=== PATIENT | male | born 1995 | race Two or more races ===

== ENCOUNTER 2016-07-08 11:26 | Observation (INO) | payer MEDICAID ==
[2016-07-08 12:11] LABS: BASO # 0.1 K/uL (0.0-0.2); BASO % 0.4 % (0.0-2.0); EOS # 0.3 K/uL (0.0-0.7); EOS % 1.3 % (0.0-4.0); HEMATOCRIT 43.6 % (35.0-51.0); LYMPH # 2.2 K/uL (1.0-4.3); LYMPH % 10.8 % (20.0-40.0); MEAN CORPUSCULAR HEMOGLOBIN 30.4 pg (27.0-31.0); MEAN CORPUSCULAR HGB CONC 33.4 g/dL (33.0-37.0); MEAN PLATELET VOLUME 10.3 fl (7.2-11.7); MONO # 1.1 K/uL (0.0-0.8); MONO % 5.5 % (0.0-10.0); NEUT # 16.9 K/uL (1.8-7.0); PLATELET COUNT 173 K/uL (130-400); RED CELL DISTRIBUTION WIDTH 13.3 % (11.5-14.5); WHITE BLOOD COUNT 20.6 K/uL (4.8-10.8)
[2016-07-08 12:20] LABS: ALB/GLOB RATIO 1.4 (1.0-2.1); ALCOHOL SERUM 53 mg/dl (0-10); ALKALINE PHOSPHATASE 98 U/L (38-126); ALT/SGPT 31 U/L (21-72); AST/SGOT 33 U/L (17-59); BILIRUBIN,TOTAL 0.3 mg/dl (0.2-1.3); BLOOD UREA NITROGEN 13 mg/dl (9-20); CALCIUM 9.3 mg/dL (8.4-10.2); CARBON DIOXIDE 23 mmol/L (22-30); CHLORIDE 101 mmol/L (98-107); GFR AFRICAN-AMERICAN > 60; GLUCOSE,RANDOM 70 mg/dL (75-110); POTASSIUM 3.9 MMOL/L (3.6-5.0); SODIUM 142 mmol/l (132-148); TOTAL PROTEIN 7.7 G/DL (6.3-8.2)
--- NOTE | 2016-07-08 13:00 | CT ---
PROCEDURE: CT HEAD WITHOUT CONTRAST. HISTORY: AMS COMPARISON: None available. TECHNIQUE: Axial computed tomography images were obtained through the head/brain without intravenous contrast. Radiation dose: Total exam DLP = 892.56 mGy-cm. This CT exam was performed using one or more of the following dose reduction techniques: Automated exposure control, adjustment of the mA and/or kV according to patient size, and/or use of iterative reconstruction technique. FINDINGS: HEMORRHAGE: No intracranial hemorrhage. BRAIN: No mass effect or edema. Superior frontal left parasagittal venous angioma. No atrophy or chronic microvascular ischemic changes.Please note that MRI with diffusion imaging is more sensitive in the detection of acute ischemic event. VENTRICLES: No hydrocephalus. CALVARIUM: Unremarkable. PARANASAL SINUSES: Unremarkable as visualized. No significant inflammatory changes. MASTOID AIR CELLS: Unremarkable as visualized. No inflammatory changes. OTHER FINDINGS: Mild frontal soft tissue swelling. Subgaleal calcification; correlate for prior trauma. IMPRESSION: Superior frontal left parasagittal venous angioma. Mild frontal soft tissue swelling. Subgaleal calcification; correlate for prior trauma.
[2016-07-08 13:06] LABS: EOSINOPHIL 1 % (0-7); NEUTROPHIL 84 % (42-75); TOTAL CELLS COUNTED 100
[2016-07-08 13:08] LABS: LARGE PLATELETS PRESENT
[2016-07-08 13:08] LABS: VENOUS BLOOD GAS BASE EXCESS 0.3 mmol/L (0.0-2.0); VENOUS BLOOD GAS PCO2 48 mmHg (40-60); VENOUS BLOOD PH 7.35 (7.32-7.43)
[2016-07-08] MEDS ORDERED: Sodium Chloride 0.9% 2,000 ML IV STA (13:16)
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
--- NOTE | 2016-07-08 13:33 | RAD ---
HISTORY: elevated wbc, ams COMPARISON: No prior. FINDINGS: LUNGS: No active pulmonary disease. PLEURA: No significant pleural effusion identified, no pneumothorax apparent. CARDIOVASCULAR: Normal. OSSEOUS STRUCTURES: No significant abnormalities. VISUALIZED UPPER ABDOMEN: Normal. OTHER FINDINGS: None. IMPRESSION: No active disease.
[2016-07-08 13:57] LABS: RBC URINE 1 /hpf (0-3); URINE BILIRUBIN NEGATIVE (NEGATIVE); URINE BLOOD SMALL (NEGATIVE); URINE COLOR YELLOW (YELLOW); URINE GLUCOSE (UA) NEG (Normal); URINE KETONE NEGATIVE (NEGATIVE); URINE LEUKOCYTE ESTERASE NEG Leu/uL (Negative); URINE PROTEIN NEGATIVE (NEGATIVE); URINE UROBILINOGEN 0.2-1.0 mg/dL (0.2-1.0); WBC URINE 1 /hpf (0-5)
[2016-07-08] MEDS ORDERED: Dextrose 50% SYRINGE Inj (50 ml) IVP STA (14:00)
[2016-07-08] MEDS ORDERED: Dextrose 50% SYRINGE Inj (50 ml) ONE (14:01)
[2016-07-08] MEDS ORDERED: Sodium Chloride 0.9% 1,000 ML IV STA (18:37)
--- NOTE | 2016-07-08 23:17 | ED PDOC ---
- Laboratory Results Result Diagrams: 07/09/16 10:27 07/08/16 12:06 - ECG O2 Sat by Pulse Oximetry: 100 (RA) - Progress ED Course And Treament: 15:30 Pt became agitated, talking to self, aggressive outbursts to staff and cursing and trying to leave. Medicated for agitation/psychosis and restrained for safety. 16:00 Pt sleeping comfortably. 19:00 Pt answering some yes/no questions, but still refusing to talk/converse outright. Responds that yes he is homeless. Denies being hungry. Says yes when asked if he wants to go to sleep. Pt medically stable for psychiatric evaluation and admission if necessary. Pending crisis eval. 22:00 Pt sleeping comfortably. [address] Kaba pending crisis eval. Condition: Improving,but remains with symptoms Disposition - Clinical Impression Clinical Impression: Substance abuse - POA Present On Arrival: None - Disposition Disposition: Transfer of Care Disposition Time: 14:10 Condition: STABLE
--- NOTE | 2016-07-09 01:02 | ED PDOC ---
- Laboratory Results Result Diagrams: 07/09/16 10:27 07/08/16 12:06 - ECG O2 Sat by Pulse Oximetry: 100 (RA) Pulse Ox Interpretation: Normal Medical Decision Making Medical Decision Makin:00 Patient is medically cleared, and has been transferred over to Dr. Kaba pending crisis eval. Scribe Attestation: Documented by Rebekah Scott, acting as a scribe for Bethany Kaba MD. Provider Scribe Attestation: All medical record entries made by the Scribe were at my direction and personally dictated by me. I have reviewed the chart and agree that the record accurately reflects my personal performance of the history, physical exam, medical decision making, and the department course for this patient. I have also personally directed, reviewed, and agree with the discharge instructions and disposition. Disposition - Clinical Impression Clinical Impression: Substance abuse - POA Present On Arrival: None - Disposition Disposition: Transfer of Care Disposition Time: 07:00 Condition: STABLE Patient Signed Over To: Peep Elias Handoff Comments: Transfer pending [facility] screening
--- NOTE | 2016-07-09 07:29 | ED PDOC ---
- Laboratory Results Result Diagrams: 07/08/16 12:06 07/08/16 12:06 - ECG O2 Sat by Pulse Oximetry: 100 (RA) Pulse Ox Interpretation: Normal Medical Decision Making Medical Decision Making: Receivign Sign Out: Patient signed out to me by Dr. Kaba with [place] [facility]. Scribe Attestation: Documented by Taty Farley acting as a scribe for Pepe Elias MD. Provider Attestation: All medical record entries made by the Scribe were at my direction and personally dictated by me. I have reviewed the chart and agree that the record accurately reflects my personal performance of the history, physical exam, medical decision making, and the department course for this patient. I have also personally directed, reviewed, and agree with the discharge instructions and disposition. Disposition - Clinical Impression Clinical Impression: Substance abuse - Disposition Condition: STABLE
[2016-07-09 10:36] LABS: HEMATOCRIT 39.4 % (35.0-51.0); MEAN CELL VOLUME 90.5 fl (80.0-94.0); MEAN CORPUSCULAR HEMOGLOBIN 30.9 pg (27.0-31.0); MEAN CORPUSCULAR HGB CONC 34.1 g/dL (33.0-37.0); RED CELL DISTRIBUTION WIDTH 13.3 % (11.5-14.5); WHITE BLOOD COUNT 7.7 K/uL (4.8-10.8)
--- NOTE | 2016-07-09 15:52 | ED PDOC ---
- Laboratory Results Result Diagrams: 07/09/16 10:27 07/08/16 12:06 - ECG O2 Sat by Pulse Oximetry: 95 (RA) Medical Decision Making Medical Decision Making: Receiving Sign Out: Pt signed over to me by Dr. Elias [place] [facility] [place]. Scribe Attestation: Documented by Taty Farley acting as a scribe for Radhika Davis MD. Provider Attestation: All medical record entries made by the Scribe were at my direction and personally dictated by me. I have reviewed the chart and agree that the record accurately reflects my personal performance of the history, physical exam, medical decision making, and the department course for this patient. I have also personally directed, reviewed, and agree with the discharge instructions and disposition. Disposition - Clinical Impression Clinical Impression: Substance abuse, Psychosis - POA Present On Arrival: None - Disposition Disposition: Transfer of Care Disposition Time: 00:00 Condition: STABLE ED OBSERVATION Date of observation admission: 07/09/16 - Observation admission statement Patient is being placed in observation because:: pt awaiting [place] [facility] [place] Goals of Observation Goals of observation are:: Stabilization until psychiatric disposition - Progress Note Progress Note: 07/09/16 15:52 Pt currently sleeping in room. 1800 Pt walked to bathroom without difficulty. 1900 Had food tray. Continues to refuse to converse. 2200 Pt ate dinner. Pending reevaluation by [facility] [place]. STable. [address] Kaba. Pending [facility] [place].
--- NOTE | 2016-07-10 01:22 | ED PDOC ---
- Laboratory Results Result Diagrams: 07/09/16 10:27 07/08/16 12:06 - ECG O2 Sat by Pulse Oximetry: 100 (RA) Medical Decision Making Medical Decision Makin: Patient is being transfered to Dr. Kaba pending [facility] [place]. Patient is still medically stable for psychiatric admission. Pt is accepted by [facility]. Scribe Attestation: Documented by Franklin Mayen acting as a scribe for Bethany Kaba MD. Provider Scribe Attestation: All medical record entries made by the~Rodrigowere at my direction and personally dictated by me. I have reviewed the chart and agree that the record accurately reflects my personal performance of the history, physical exam, medical decision making, and the department course for this patient. I have also personally directed, reviewed, and agree with the discharge instructions and disposition. Disposition Doctor Will See Patient In The: Office Counseled Patient/Family Regarding: Studies Performed, Diagnosis, Need For Followup - Clinical Impression Clinical Impression: Substance abuse, Psychosis - POA Present On Arrival: None - Disposition Disposition: Transfer of Care ([facility]) Disposition Time: 07:00 Condition: STABLE
--- NOTE | 2016-07-10 16:44 | ED PDOC ---
- Laboratory Results Result Diagrams: 07/09/16 10:27 07/08/16 12:06 - ECG ECG: Positive for: Interpreted By Me ECG Rhythm: Positive for: Normal QRS, Normal ST Segment, Sinus Rhythm O2 Sat by Pulse Oximetry: 95 (RA) Disposition - Clinical Impression Clinical Impression: Substance abuse, Psychosis - POA Present On Arrival: None - Disposition Disposition: Transfer of Care Disposition Time: 00:00 Condition: STABLE ED OBSERVATION - Progress Note Progress Note: 3p Rec'd Endorsement from Dr Hopkins. Pt psychotic pending bed availability at [facility] [place]. Stable at this time. 1800 Pt asked for something for relief of his anxiety. Benadryl/ativan po ordered. 2100 Pt stable. Psych recommendations appreciated. [address] Zheng. Pending bed availability at [facility].
--- NOTE | 2016-07-10 17:00 | CP.PCM.CON ---
History of Present Illness - History of Present Illness History of Present Illness: This is a 21 year old male with ho psychotic illness brought by EMS because pt was found to be wandering in rain.pt has refused to give any info about his identity and his medical history.pt has been actively hallucinating and also intermitently agitated.pt has refused voluntary admission and refused to be interviewed by staff and waiting for [facility] screening and bed placement. Past Patient History - Past Social History Smoking Status: Unknown If Ever Smoked - CARDIAC Hx Cardiac Disorders: No Hx Hypertension: No - PULMONARY Hx Tuberculosis: No - NEUROLOGICAL HX Cerebrovascular Accident: No Hx Seizures: No - HEMATOLOGICAL/ONCOLOGICAL Hx Cancer: No Hx Human Immunodeficiency Virus (HIV): No - GENITOURINARY/GYNECOLOGICAL Hx Sexually Transmitted Disorders: No - PSYCHIATRIC Hx Substance Use: No (unobtainable) - ANESTHESIA Hx Anesthesia: No (unobtainable) Meds Allergies/Adverse Reactions: Allergies Allergy/AdvReac Type Severity Reaction Status Date / Time No Known Allergies Allergy Verified 07/08/16 14:10 Results - Vital Signs Recent Vital Signs: Last Vital Signs Temp 98.3 F 07/10/16 09:00 Pulse 88 07/10/16 09:00 Resp 18 07/10/16 09:00 BP 122/76 07/10/16 09:00 Pulse Ox 95 07/10/16 16:44 - Labs Result Diagrams: 07/09/16 10:27 07/08/16 12:06
--- NOTE | 2016-07-10 23:54 | ED PDOC ---
- Laboratory Results Result Diagrams: 07/09/16 10:27 07/08/16 12:06 - ECG O2 Sat by Pulse Oximetry: 95 (RA) Medical Decision Making Medical Decision Making: Patient s/o from Dr. Davis at 0000 pending [facility] [place]. Patient s/ o to Dr. Anna at 0700 pending [facility] [place]. Scribe Attestation: Documented by Autumn Cuevas acting as a scribe for Polly Zheng MD. Provider Scribe Attestation: All medical record entries made by the Scribe were at my direction and personally dictated by me. I have reviewed the chart and agree that the record accurately reflects my personal performance of the history, physical exam, medical decision making, and the department course for this patient. I have also personally directed, reviewed, and agree with the discharge instructions and disposition. Disposition - Clinical Impression Clinical Impression: Substance abuse, Psychosis - POA Present On Arrival: None - Disposition Disposition: Transfer of Care Disposition Time: 07:00 Condition: STABLE Patient Signed Over To: Ramon Anna Handoff Comments: pending [facility] [place] ED OBSERVATION Date of observation admission: 07/08/16 Time of observation admission: 14:10 - Observation admission statement Patient is being placed in observation because:: substance abuse - Progress Note Progress Note: 0205: Patient resting comfortably in no distress.
--- NOTE | 2016-07-11 07:17 | ED PDOC ---
- Laboratory Results Result Diagrams: 07/09/16 10:27 07/08/16 12:06 - ECG O2 Sat by Pulse Oximetry: 95 (RA) Pulse Ox Interpretation: Normal Disposition - Clinical Impression Clinical Impression: Substance abuse, Psychosis - POA Present On Arrival: None - Disposition Disposition: Transfer of Care Disposition Time: 17:00 Condition: STABLE Patient Signed Over To: Radhika Davis ED OBSERVATION - Progress Note Progress Note: 07/11/16 07:00 signed over to me by Mary Zheng MD pending [facility] bed availability. 07/11/16 08:34 Vitals are stable. 1000 vitals stable 1200 vitals remain stable 07/11/16 14:03 resting comfortably 07/11/16 16:31 vitals are stable 1700 signed over to Yane Davis MD pending [facility] bed. Additional Comments - Additional Comments Additional Comments: Scribe Attestation: Documented by Shad Gibson acting as a scribe for Ramon Anna MD. Provider Scribe Attestation: All medical record entries made by the Scribe were at my direction and personally dictated by me. I have reviewed the chart and agree that the record accurately reflects my personal performance of the history, physical exam, medical decision making, and the department course for this patient. I have also personally directed, reviewed, and agree with the discharge instructions and disposition.
--- NOTE | 2016-07-11 13:25 | CARD ---
APPROVED REPORT EKG Measurement Heart [id number] <Conclusion> Sinus bradycardia Otherwise normal ECG
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
--- NOTE | 2016-07-11 23:39 | ED PDOC ---
- Laboratory Results Result Diagrams: 07/09/16 10:27 07/08/16 12:06 - ECG O2 Sat by Pulse Oximetry: 98 Disposition - Clinical Impression Clinical Impression: Substance abuse, Psychosis - POA Present On Arrival: None - Disposition Disposition: Transfer of Care Disposition Time: 00:00 Condition: STABLE Patient Signed Over To: Polly Zheng ( ) Handoff Comments: [place] [facility] [place] ED OBSERVATION - Progress Note Progress Note: 5p Rec'd endorsement from Dr Anna. Pt with psychosis awaiting bed availability for [place] [facility] 8p Requesting medication to calm down. Pt has prn meds and can be given. Stable 11p Stable 12a Endorsed to Dr Zheng.
--- NOTE | 2016-07-12 00:46 | ED PDOC ---
- Laboratory Results Result Diagrams: 07/09/16 10:27 07/08/16 12:06 - ECG O2 Sat by Pulse Oximetry: 98 Medical Decision Making Medical Decision Making: Patient s/o from Dr. Davis at 0000 pending [facility] bed availability. Patient sleeping comfortably in no distress. Patient s/o to Dr. Kaba at 0700 pending [facility] bed availability. Scribe Attestation: Documented by Autumn Cuevas acting as a scribe for Polly Zheng MD. Provider Scribe Attestation: All medical record entries made by the Scribe were at my direction and personally dictated by me. I have reviewed the chart and agree that the record accurately reflects my personal performance of the history, physical exam, medical decision making, and the department course for this patient. I have also personally directed, reviewed, and agree with the discharge instructions and disposition. Disposition - Clinical Impression Clinical Impression: Substance abuse, Psychosis - POA Present On Arrival: None - Disposition Disposition: Transfer of Care Disposition Time: 07:00 Condition: STABLE Patient Signed Over To: Bethany Kaba Handoff Comments: pending [facility] bed availability
--- NOTE | 2016-07-12 07:08 | ED PDOC ---
- Laboratory Results Result Diagrams: 07/09/16 10:27 07/08/16 12:06 - ECG O2 Sat by Pulse Oximetry: 98 Medical Decision Making Medical Decision Making: Time: 0700 Patient signed out pending [facility] [place] [place] bed [place] Scribe Attestation: Documented by Gege Lambert acting as a scribe for Bethany Kaba MD MD Scribe Attestation: All medical record entries made by the Scribe were at my direction and personally dictated by me. I have reviewed the chart and agree that the record accurately reflects my personal performance of the history, physical exam, medical decision making, and the department course for this patient. I have also personally directed, reviewed, and agree with the discharge instructions and disposition. Disposition Counseled Patient/Family Regarding: Studies Performed, Diagnosis - Clinical Impression Clinical Impression: Substance abuse, Psychosis - POA Present On Arrival: None - Disposition Disposition: Other Institution ([facility] [place] [place]) Disposition Time: 16:37 Condition: STABLE
[2016-07-12 12:35] VITALS: RESP 19
--- NOTE | 2016-07-12 13:20 | CP.PCM.CON ---
History of Present Illness - History of Present Illness History of Present Illness: Psychiatry consult follow-up CC: "I was just drunk" HPI: 21 yo male brought to er by police after found wandering. pt positive for etoh and mj. Patient continues to disorganized. He started talking about how he raps into to help his breathing and stress, stated in a bizarre non-linear way. He does not believe he has any acute psychiatric issues, but seems psychotic and internally preoccupied. He has been noticed to be talking to himself by various staff members and seems to have thought blocking at times. He denies overt psychotic symptoms when asked directly. He has been accepted at the [facility] for involuntary assessment and is awaiting bed there. Past psych: unknown Medical: unknown Substances alcohol was 53, pos mj. Social: unknown Mse: alert, oriented to self, circumstantial. constricted mood. poor eye contact. denies si/hi. denies a/v hallucinations. paranoid, denies needing treatment or having any psychiatric issues and minimizing reason for admission. poor impulse control. poor i/j. Assessment: Patient continues to need acute psychiatric admission for treatment and stabilization. Psychotic disorder unspecified cannabis use alcohol use Recommendation: continue prn meds for agitation pt awaiting transfer to the [facility] for further assessment pt is refusing to consider voluntary admission Past Patient History - Past Social History Smoking Status: Unknown If Ever Smoked - CARDIAC Hx Cardiac Disorders: No Hx Hypertension: No - PULMONARY Hx Tuberculosis: No - NEUROLOGICAL HX Cerebrovascular Accident: No Hx Seizures: No - HEMATOLOGICAL/ONCOLOGICAL Hx Cancer: No Hx Human Immunodeficiency Virus (HIV): No - GENITOURINARY/GYNECOLOGICAL Hx Sexually Transmitted Disorders: No - PSYCHIATRIC Hx Substance Use: No (unobtainable) - ANESTHESIA Hx Anesthesia: No (unobtainable) Meds Allergies/Adverse Reactions: Allergies Allergy/AdvReac Type Severity Reaction Status Date / Time No Known Allergies Allergy Verified 07/08/16 14:10 - Medications Medications: Current Medications Haloperidol (Haldol) 5 mg PO TID PRN PRN Reason: Agitation Last Admin: 07/12/16 10:16 Dose: 5 mg Lorazepam (Ativan) 1 mg PO TID PRN PRN Reason: Agitation Last Admin: 07/12/16 10:15 Dose: 1 mg Results - Vital Signs Recent Vital Signs: Last Vital Signs Temp 98.2 F 07/12/16 08:00 Pulse 78 07/12/16 08:00 Resp 19 07/12/16 08:00 BP 127/67 07/12/16 08:00 Pulse Ox 99 07/12/16 08:00 - Labs Result Diagrams: 07/09/16 10:27 07/08/16 12:06
[2016-07-12 16:49] VITALS: BP 126/76; PULSE 94; TEMP 97; O2SAT 100
== END 2016-07-12 16:20 ==
LOC: H.ER 11:26 → H.EROBSV 14:10 → EDBD 14:10
PROVIDERS: ADMIT Emergency Medicine; ATTEND Emergency Medicine
DX: F29 Unspecified psychosis not due to a substance or known physiological condition (principal); Z91.83 Wandering in diseases classified elsewhere; F12.90 Cannabis use, unspecified, uncomplicated; Z72.89 Other problems related to lifestyle; Y90.2 Blood alcohol level of 40-59 mg/100 ml
CPT/HCPCS: 36415; 70450; 71010; 80053; 81003; 82803; 82948; 83605; 85025; 85027; 87040; 87086; 93005; 96361; 96372; 96374; 99285; G0378; G0480; J1630; J2060; J7040